=== PATIENT | male | born 1960 | race Caucasian/White ===

== ENCOUNTER → 2016-08-14 | Outpatient (CLI) | payer MEDICARE ==
[~2016-08-14] MED LIST: /TAMS4CA; ADDE10CA3 OR; AMLO10TA2 PO; ARTHROTEC PO; ASPI1TAB6 PO; ASPI81TA2 PO; CLOP75TA2 PO; COLA50CA OR; DICL75TA PO; FLUO10TA2 OR; GABA600T3 OR; GINGKO BILOBA PO; GINSENG PO; I-CAP PO; LIDO5DIS41 TOP; LODINE; LODINE OR; LODINE PO; METH10TA2 OR; METH750T OR; METO-346 PO; MORP100T OR; MORP60TA OR; MSIR30TA PO; MULTIVIT PO; NAPR500T2 PO; OXYC15TA50; OXYC15TA50 OR; OXYC1CON3 PO; OXYC40TA29 PO; PENN1.5S2 TOP; PENNSAID TOP; PRAV80TA2 PO; PREG25CA PO; PRIL20CA OR; PROZ20CA; PROZ40CA PO; SIMV20TA2 OR; SOMA350T OR; SOMA350T PO; TIZA4CAP3 PO; TRAZ50TA; TRAZ50TA OR
--- NOTE | 2016-09-03 00:55 | ECWPNPC ---
PATIENT NAME: TAMMY FRAZIER JR : 1960 GENDER: MALE VISIT DATE: 08/14/2016 DISCHARGE DATE: 08/14/16 1049 VISIT LOCKED DATE TIME: PHYSICIAN: BRETT AGUILAR RESOURCE: BRETT AGUILAR REASON FOR APPOINTMENT 1. BACK HISTORY OF PRESENT ILLNESS HISTORY OF PRESENT ILLNESS: PAIN THE PATIENT DESCRIBES THE PAIN... FALL RISK SCREENING: SCREENING :NO FALLS IN THE PAST YEAR TODAY'S VISIT: NOTES: RATES PAIN LEVEL TODAY 410. DESCRIBES PAINA S SHARP AND ACHING. NOTES PAIN IS CENTERED IN NECK, LEFT SHOULDER BOTH HIPS AND LEFT LEG. HAS RETURNED FROM [place] JUST IN THE LAST 2 WEEKS. REPORTS HE FEELS MUCH BETTER THERE AND IS TRING TO GET HIS AFFAIRS IN ORDER TO RETURN ON A PERMANENT BASIS. DENIES ANY RECENT FALLS.. CURRENT MEDICATIONS TAKING AMPHETAMINE-DEXTROAMPHETAMINE 10 MG TABLET ORAL BID TAKING OMEPRAZOLE 20 MG CAPSULE DELAYED RELEASE ORAL ONCE DAILY TAKING TRAZODONE HCL 50 MG TABLET ORAL NIGHTLY NEEDED TAKING AMLODIPINE BESYLATE 10 MG TABLET ORAL TWICE DAILY TAKING PRAVASTATIN SODIUM 80 MG TABLET ORAL ONCE DAILY TAKING METOPROLOL TARTRATE 25 MG TABLET ORAL TWICE A DAY TAKING MORPHINE SULFATE ER 60 MG TABLET EXTENDED RELEASE 1 TABLET ORALLY Q 8 HRS MDD=3 TAKING ETODOLAC 400 MG TABLET 1 TABLET ORALLY TWICE A DAY TAKING GABAPENTIN 600 MG TABLET 1 CAP ORAL BID TAKING TIZANIDINE HCL 4 MG TABLET 1 TABLET NEEDED ORALLY EVERY 8 HRS TAKING MORPHINE SULFATE ER 60 MG TABLET EXTENDED RELEASE 1 CAPSULE ORAL CODE D CHRONIC PAIN TAKE 1 TAB Q 8HRS MDD=3 TAKING SOMA 350 MG TABLET 1 TABLET NEEDED ORALLY 1 AT BEDTIME PRN MDD1 TAKING METHADONE HCL 10 MG TABLET 1 TAB ORAL CODE D CHRONIC PAIN TAKE 1 TAB EVERY 6 HOURS MDD=4 CHRONIC PAIN NOT-TAKING LYRICA 200 MG CAPSULE 1 CAP ORAL BID NOT-TAKING METHADONE HCL 10 MG TABLET 1 TABLET ORALLY Q 6 HRS MDD=4 NOT-TAKING SOMA 350 MG TABLET 1 TABLET NEEDED ORALLY BEFORE BEDTIME MEDICATION LIST REVIEWED AND RECONCILED WITH THE PATIENT PAST MEDICAL HISTORY GERD ANXIETY POST LAMI PAIN SYNDROME DEPRESSION HEART ATTACK X 2 AND STENTS PLACED ALLERGIES NONE REVIEW OF SYSTEMS REVIEWED BY: PROVIDER: BRETT REYNOSOP . CONSTITUTIONAL: ANY CHANGE IN YOUR MEDICAL CONDITION? YES, LEFT HIP POPS OUT . CHILLS NO . FEVER NO . INFECTION: DO YOU HAVE NEW INFECTIONS? NO . DO YOU HAVE HISTORY OF MRSA? NO . MUSCULOSKELETAL: ANY NEW PATTERNS OF PAIN OR NUMBNESS? YES . GASTROENTEROLOGY: GENERAL ACID REFLUX IMPROVED WITH STOPPING NSAIDS . ANY NEW CHANGE IN BOWEL CONTROL? NO . GENITOURINARY: ANY NEW CHANGE IN BLADDER CONTROL? NO . IS THERE A CHANCE YOU COULD BE ? NO . HEMATOLOGY/LYMPH: DO YOU TAKE ANY BLOOD THINNERS? (FOR EXAMPLE- COUMADIN, PLAVIX, AGGRENOX, PLATEL, PRADAXA, OR XARELTO) NO . WHEN WAS YOUR LAST DOSE? DATE: TIME: . NEUROLOGY: HAVE YOU FALLEN IN THE PAST 6 MONTHS? NO . ANY NEW EXTREMITY NUMBNESS OR WEAKNESS? NO . CARDIOLOGY: DO YOU HAVE A PACEMAKER OR DEFIBRILLATOR? NO . CHANGE IN EXERCISE TOLERANCE REPORTS IS MORE EASIL Y FATIGUED . CHEST PAIN PATIENT DENIES. NO NEW CARDIAC ISSUES IN THE LAST 6 MONTHS . RESPIRATORY: HAVE YOU BEEN SICK IN THE PAST WEEK? NO . FEVER NO . FLU LIKE SYMPTOMS? NO . COUGH NO . INTEGUMENTARY: DO YOU HAVE ANY RASHES OR OPEN SORES? NO . ALLERGIC/IMMUNO: ARE YOU ALLERGIC TO SHELLFISH OR IV DYE? NO . ANY NEW ALLERGIES? NO . PSYCHIATRIC: DO YOU HAVE THOUGHTS OF HURTING YOURSELF OR SOMEONE ELSE? NO . ARE YOU ABUSED, NEGLECTED, OR IN AN UNSAFE ENVIRONMENT? NO . ENDOCRINOLOGY: ARE YOU DIABETIC? NO . OTHER: DO YOU NEED ANY PRESCRIPTIONS? YES . IF YES, PLEASE LIST: ____GABAPENTIN TID . ANY NEW PROBLEMS WITH YOUR MEDICATIONS? NO . WHEN DID YOU LAST EAT? ____ . WHEN DID YOU LAST DRINK? ____ . WHAT DID YOU LAST DRINK? ____ . NAME OF PERSON DRIVING YOU HOME? ____ . DO YOU HAVE ANY OTHER QUESTIONS OR CONCERNS YES,INCREASE 3 TABS? . VITAL SIGNS WT 207 LBS, HT 69", BMI 30.57 INDEX, BP 144/82 MM HG, HR 71 /MIN, RR 18 /MIN, TEMP 98.0 F, OXYGEN SAT % 97%, NA INITIALS SC 09:50, REVIEWED BY: VD. EXAMINATION GENERAL EXAMINATION: PSYCHALERT , ORIENTED X 3 . LUNGS:CLEAR TO AUSCULTATION BILATERALLY. HEART:HEART RATE REGULAR. MUSCULOSKELETAL:TRIGGER POINTS:, ELICITED WITH PALPATION OVER LUMBAR PARAVERTEBRAL MUSCLES AND INTO THE SACRUM. WELL OVER THE BILATERAL TRAEZIUS. RESTRICTION OF ROM WITH CERVICAL ROTATION. TENDERNESS WITH PALPATION OVER BILATERAL ILIAC CREST AND TROCANTERIC REGION. MILD TENDERNESS OVER LUMOSACRAL AXIS. RISES EASILY TO STANDING POSITION. POSTURE UPRIGHT. GAIT RAPID, NONANTALGIC. ASSESSMENTS LUMBAR DISC DISPLACEMENT WITHOUT MYELOPATHY - M51.26 (PRIMARY) LUMBAR RADICULAR SYNDROME - M54.16 CERVICAL POST-LAMINECTOMY SYNDROME - M96.1 CHRONIC PRESCRIPTION OPIATE USE - Z79.891 TREATMENT LUMBAR DISC DISPLACEMENT WITHOUT MYELOPATHY REFILL GABAPENTIN TABLET, 600 MG, 1 CAP, ORAL, THREE TIMES DAILY, 90 DAY(S), 270, REFILLS 2 CLINICAL NOTES: ISTOP REGISTRY REVIEWED AND DEMNOSTRATES COMPLLIANCE. BRINGS IN MEDICATIONS WHICH IS APPROPRIATE FOR WHAT WAS DISPENSED. RECENT URINE TOXICOLOGY REVIEWED. NO UNAUTHORIZED MEDICATIONS. NO ILLICIT SUBSTANCES AND PRESCRIBED MEDICATIONS WERE PRESENT. DISCUSSION HELD TODAY REGARDING TRAFFIC STOP SECONDARY TO SPEEDING AND THEN "DRIVING UNDER THE INFLUENCE". PROCEDURE CODES FA211 ESTABILISHED PATIENT [facility] FACILITY CHARGE G8783 BP SCR PRFRM RCMDD DEFIND SCR INTVL G8419 BMI>=30OR<22 ALBINA NO FOLLOWUP G8730 PAIN ASSESS POS TOOL F/U PLAN DOC 3016F PT SCRND UNHLTHY [place] USE 1124F ACP DISCUSS-NO DSCNMKR DOCD 1036F TOBACCO NON-USER G8427 DOC MEDS VERIFIED W/[place] RE 3288F FALL RISK ASSESSMENT DOCD DISPOSITION & COMMUNICATION FOLLOW UP 1 MONTH (REASON: NECK/BACK PAIN) ELECTRONICALLY SIGNED BY PUSHPA RUFFIN ON 09/02/2016 AT 05:26 PM EDT DISCLAIMER : THIS IS A VISIT SUMMARY EXTRACTED FROM THE [employer] CHART. IT IS NOT A COPY OF THE [employer] PROGRESS NOTE. MTDD
== END ==
LOC: M PAIN 09:40
PROVIDERS: ATTEND Nurse Practitioner Family
DX: M51.26 Other intervertebral disc displacement, lumbar region (principal); M54.16 Radiculopathy, lumbar region; M96.1 Postlaminectomy syndrome, not elsewhere classified; Z79.891 Long term (current) use of opiate analgesic; Z79.899 Other long term (current) drug therapy; K21.9 Gastro-esophageal reflux disease without esophagitis; F41.9 Anxiety disorder, unspecified; F32.9 Major depressive disorder, single episode, unspecified; I25.2 Old myocardial infarction; Z95.5 Presence of coronary angioplasty implant and graft

== ENCOUNTER → 2016-09-11 | Outpatient (CLI) | payer MEDICARE ==
--- NOTE | 2016-10-10 02:03 | ECWPNPC ---
PATIENT NAME: TAMMY FRAZIER JR : 1960 GENDER: MALE VISIT DATE: 09/11/2016 DISCHARGE DATE: 09/11/16 1028 VISIT LOCKED DATE TIME: PHYSICIAN: BRETT AGUILAR RESOURCE: BRETT AGUILAR REASON FOR APPOINTMENT 1. NECK/BACK PAIN HISTORY OF PRESENT ILLNESS HISTORY OF PRESENT ILLNESS: PAIN THE PATIENT DESCRIBES THE PAIN... FALL RISK SCREENING: SCREENING :NO FALLS IN THE PAST YEAR TODAY'S VISIT: NOTES: NOTES PAIN IS CENTERD IN LEFT SHOULDER, BASE OF NECK AND LOW BACK. RATES PAIN TODAY 05/02. REPORTS NECK HAS BEEN LOCKING UP. . CURRENT MEDICATIONS TAKING AMPHETAMINE-DEXTROAMPHETAMINE 10 MG TABLET ORAL BID, NOTES: 09/11/16 AT 0700 TAKING OMEPRAZOLE 20 MG CAPSULE DELAYED RELEASE ORAL ONCE DAILY TAKING TRAZODONE HCL 50 MG TABLET ORAL NIGHTLY NEEDED TAKING AMLODIPINE BESYLATE 10 MG TABLET ORAL TWICE DAILY TAKING PRAVASTATIN SODIUM 80 MG TABLET ORAL ONCE DAILY TAKING METOPROLOL TARTRATE 25 MG TABLET ORAL TWICE A DAY TAKING TIZANIDINE HCL 4 MG TABLET 1 TABLET NEEDED ORALLY EVERY 8 HRS TAKING MORPHINE SULFATE ER 60 MG TABLET EXTENDED RELEASE 1 CAPSULE ORAL CODE D CHRONIC PAIN TAKE 1 TAB Q 8HRS MDD=3, NOTES: 09/11/16 AT 0730 TAKING SOMA 350 MG TABLET 1 TABLET NEEDED ORALLY 1 AT BEDTIME PRN MDD1, NOTES: 09/09/16 TAKING METHADONE HCL 10 MG TABLET 1 TAB ORAL CODE D CHRONIC PAIN TAKE 1 TAB EVERY 6 HOURS MDD=4 CHRONIC PAIN, NOTES: 09/11/16 AT 0730 TAKING GABAPENTIN 600 MG TABLET 1 CAP ORAL THREE TIMES DAILY, NOTES: 09/11/16 AT 0700 TAKING FLUOXETINE HCL 60 MG TABLET 1 TABLET IN THE MORNING ORALLY ONCE A DAY TAKING ASPIRIN ADULT LOW DOSE 81 MG TABLET DELAYED RELEASE 1 TABLET ORALLY ONCE A DAY NOT-TAKING MORPHINE SULFATE ER 60 MG TABLET EXTENDED RELEASE 1 TABLET ORALLY Q 8 HRS MDD=3 NOT-TAKING ETODOLAC 400 MG TABLET 1 TABLET ORALLY TWICE A DAY NOT-TAKING LYRICA 200 MG CAPSULE 1 CAP ORAL BID NOT-TAKING METHADONE HCL 10 MG TABLET 1 TABLET ORALLY Q 6 HRS MDD=4 NOT-TAKING SOMA 350 MG TABLET 1 TABLET NEEDED ORALLY BEFORE BEDTIME MEDICATION LIST REVIEWED AND RECONCILED WITH THE PATIENT PAST MEDICAL HISTORY GERD ANXIETY POST LAMI PAIN SYNDROME DEPRESSION HEART ATTACK X 2 AND STENTS PLACED ALLERGIES N.K.D.A. SOCIAL HISTORY GENERAL: TOBACCO USE ARE YOU A:NEVER SMOKER CAFFEINE CAFFEINE USE?YES HOW OFTEN AND HOW MUCH? 1 COFFEE A DAY LEARNING BARRIERS / SPECIAL NEEDS ABILITY TO UNDERSTAND VERBAL INSTRUCTIONS GOOD, ABILITY TO UNDERSTAND WRITTEN INSTRUCTIONS GOOD, KNOWLEDGE OF EDUCATIONAL NEEDS/TREATMENT PLAN GOOD, LEARNING PREFERENCE NO PREFERENCE. PAIN CLINIC PFS, CLERGY, PUBLIC HEALTH REFERRALS PFS REFERRAL NEEDED?NO CLERGY REFERRAL NEEDED?NO PUBLIC HEALTH REFERRAL NEEDED?NO HAS THE PATIENT BEEN EDUCATED REGARDING HIS/HER PLAN OF CARE?YES HAS THE PATIENT BEEN EDUCATED REGARDING PAIN, THE RISK FOR PAIN, THE IMPORTANCE OF EFFECTIVE PAIN MANAGEMENT, AND THE PAIN ASSESSMENT PROCESS?YES REVIEW OF SYSTEMS REVIEWED BY: PROVIDER: BRETT POWER . CONSTITUTIONAL: ANY CHANGE IN YOUR MEDICAL CONDITION? YES, INCREASED PAIN IN BOTH SHOULDERS SINCE MOVING BACK HERE FROM [place] . CHILLS NO . FEVER NO . INFECTION: DO YOU HAVE NEW INFECTIONS? NO . DO YOU HAVE HISTORY OF MRSA? NO . MUSCULOSKELETAL: ANY NEW PATTERNS OF PAIN OR NUMBNESS? NO . GASTROENTEROLOGY: ANY NEW CHANGE IN BOWEL CONTROL? NO . GENITOURINARY: ANY NEW CHANGE IN BLADDER CONTROL? NO . IS THERE A CHANCE YOU COULD BE ? NO . HEMATOLOGY/LYMPH: DO YOU TAKE ANY BLOOD THINNERS? (FOR EXAMPLE- COUMADIN, PLAVIX, AGGRENOX, PLATEL, PRADAXA, OR XARELTO) NO . WHEN WAS YOUR LAST DOSE? DATE: TIME: . NEUROLOGY: HAVE YOU FALLEN IN THE PAST 6 MONTHS? NO . ANY NEW EXTREMITY NUMBNESS OR WEAKNESS? NO . CARDIOLOGY: DO YOU HAVE A PACEMAKER OR DEFIBRILLATOR? NO . RESPIRATORY: HAVE YOU BEEN SICK IN THE PAST WEEK? NO . FEVER NO . FLU LIKE SYMPTOMS? NO . COUGH NO . INTEGUMENTARY: DO YOU HAVE ANY RASHES OR OPEN SORES? NO . ALLERGIC/IMMUNO: ARE YOU ALLERGIC TO SHELLFISH OR IV DYE? NO . ANY NEW ALLERGIES? NO . PSYCHIATRIC: DO YOU HAVE THOUGHTS OF HURTING YOURSELF OR SOMEONE ELSE? NO . ARE YOU ABUSED, NEGLECTED, OR IN AN UNSAFE ENVIRONMENT? NO . ENDOCRINOLOGY: ARE YOU DIABETIC? NO . OTHER: DO YOU NEED ANY PRESCRIPTIONS? YES . IF YES, PLEASE LIST: ____ . ANY NEW PROBLEMS WITH YOUR MEDICATIONS? NO . WHEN DID YOU LAST EAT? ____ . WHEN DID YOU LAST DRINK? ____ . WHAT DID YOU LAST DRINK? ____ . NAME OF PERSON DRIVING YOU HOME? ____ . DO YOU HAVE ANY OTHER QUESTIONS OR CONCERNS YES, NECK LOCKS UP . VITAL SIGNS WT 201.8 LBS, HT 69", BMI 29.80 INDEX, BP 147/89 MM HG, HR 87 /MIN, RR 18 /MIN, TEMP 98.2 F, OXYGEN SAT % 93%, NA INITIALS SC 09:46, REVIEWED BY: CS. EXAMINATION GENERAL EXAMINATION: PSYCHALERT , ORIENTED X 3 . LUNGS:CLEAR TO AUSCULTATION BILATERALLY. HEART:HEART RATE REGULAR. MUSCULOSKELETAL:TRIGGER POINTS:, ELICITED WITH PALPATION OVER LUMBAR PARAVERTEBRAL MUSCLES AND INTO THE SACRUM. WELL OVER THE BILATERAL TRAEZIUS. RESTRICTION OF ROM WITH CERVICAL ROTATION. TENDERNESS WITH PALPATION OVER BILATERAL ILIAC CREST AND TROCANTERIC REGION. MILD TENDERNESS OVER LUMOSACRAL AXIS. RISES EASILY TO STANDING POSITION. POSTURE UPRIGHT. GAIT RAPID, NONANTALGIC. ASSESSMENTS LUMBAR DISC DISPLACEMENT WITHOUT MYELOPATHY - M51.26 (PRIMARY) LUMBAR RADICULAR SYNDROME - M54.16 CERVICAL POST-LAMINECTOMY SYNDROME - M96.1 CHRONIC PRESCRIPTION OPIATE USE - Z79.891 TREATMENT LUMBAR DISC DISPLACEMENT WITHOUT MYELOPATHY NOTES: UTOX TODAYCONTINUE CURRENT MEDSFOLLOW UP WITH DR LOPEZ ABOUT TESTOSTERONE. CLINICAL NOTES: ISTOP REGISTRY REVIEWED AND DEMNOSTRATES COMPLLIANCE. BRINGS IN MEDICATIONS WHICH IS APPROPRIATE FOR WHAT WAS DISPENSED. RECENT URINE TOXICOLOGY REVIEWED. NO UNAUTHORIZED MEDICATIONS. NO ILLICIT SUBSTANCES AND PRESCRIBED MEDICATIONS WERE PRESENT. DISCUSSED OPTION OF INTERVENTIONAL TREATMENT. PT WISHES TO EXPLORE LOW TESTOSTERONE FIRST. REPORTS HE HAD A RECENT E[phone]. PROCEDURE CODES G8730 PAIN ASSESS POS TOOL F/U PLAN DOC G8427 DOC MEDS VERIFIED W/PT OR RE DISPOSITION & COMMUNICATION FOLLOW UP 1 MONTH (REASON: CAPO TO DR FADI BYERS, - ) ELECTRONICALLY SIGNED BY PUSHPA RUFFIN ON 10/09/2016 AT 08:29 AM EDT DISCLAIMER : THIS IS A VISIT SUMMARY EXTRACTED FROM THE [employer] CHART. IT IS NOT A COPY OF THE [employer] PROGRESS NOTE. MTDD
== END ==
LOC: M PAIN 10:00
PROVIDERS: ATTEND Nurse Practitioner Family
DX: M51.26 Other intervertebral disc displacement, lumbar region (principal); M54.16 Radiculopathy, lumbar region; M96.1 Postlaminectomy syndrome, not elsewhere classified; Z79.891 Long term (current) use of opiate analgesic; Z79.899 Other long term (current) drug therapy; Z79.82 Long term (current) use of aspirin

== ENCOUNTER → 2016-10-10 | Outpatient (CLI) | payer MEDICARE ==
--- NOTE | 2016-10-26 23:48 | ECWPNPC ---
PATIENT NAME: TAMMY FRAZIER JR : 1960 GENDER: MALE VISIT DATE: 10/10/2016 DISCHARGE DATE: 10/10/16 1159 VISIT LOCKED DATE TIME: PHYSICIAN: BRETT AGUILAR RESOURCE: BRETT AGUILAR HISTORY OF PRESENT ILLNESS HISTORY OF PRESENT ILLNESS: PAIN THE PATIENT DESCRIBES THE PAIN... FALL RISK SCREENING: SCREENING :NO FALLS IN THE PAST YEAR TODAY'S VISIT: NOTES: RATES PAIN 4/10. NOTES WORST ARE THE LOW BACK AND LEFT HAND. HAD FALL AND LANDED ON HAND HEARD IT POP AND HAND HAS BEEN SWOLLEN AND VERY PAINFUL WITH MOVEMENT. . CURRENT MEDICATIONS TAKING AMPHETAMINE-DEXTROAMPHETAMINE 10 MG TABLET ORAL BID TAKING OMEPRAZOLE 20 MG CAPSULE DELAYED RELEASE ORAL ONCE DAILY TAKING TRAZODONE HCL 50 MG TABLET ORAL NIGHTLY NEEDED TAKING AMLODIPINE BESYLATE 10 MG TABLET ORAL TWICE DAILY TAKING PRAVASTATIN SODIUM 80 MG TABLET ORAL ONCE DAILY TAKING METOPROLOL TARTRATE 25 MG TABLET ORAL TWICE A DAY TAKING TIZANIDINE HCL 4 MG TABLET 1 TABLET NEEDED ORALLY EVERY 8 HRS TAKING MORPHINE SULFATE ER 60 MG TABLET EXTENDED RELEASE 1 CAPSULE ORAL CODE D CHRONIC PAIN TAKE 1 TAB Q 8HRS MDD=3 TAKING SOMA 350 MG TABLET 1 TABLET NEEDED ORALLY 1 AT BEDTIME PRN MDD1 TAKING METHADONE HCL 10 MG TABLET 1 TAB ORAL CODE D CHRONIC PAIN TAKE 1 TAB EVERY 6 HOURS MDD=4 CHRONIC PAIN TAKING GABAPENTIN 600 MG TABLET 1 CAP ORAL THREE TIMES DAILY TAKING FLUOXETINE HCL 60 MG TABLET 1 TABLET IN THE MORNING ORALLY ONCE A DAY TAKING ASPIRIN ADULT LOW DOSE 81 MG TABLET DELAYED RELEASE 1 TABLET ORALLY ONCE A DAY NOT-TAKING MORPHINE SULFATE ER 60 MG TABLET EXTENDED RELEASE 1 TABLET ORALLY Q 8 HRS MDD=3 NOT-TAKING ETODOLAC 400 MG TABLET 1 TABLET ORALLY TWICE A DAY NOT-TAKING LYRICA 200 MG CAPSULE 1 CAP ORAL BID NOT-TAKING METHADONE HCL 10 MG TABLET 1 TABLET ORALLY Q 6 HRS MDD=4 NOT-TAKING SOMA 350 MG TABLET 1 TABLET NEEDED ORALLY BEFORE BEDTIME MEDICATION LIST REVIEWED AND RECONCILED WITH THE PATIENT PAST MEDICAL HISTORY GERD ANXIETY POST LAMI PAIN SYNDROME DEPRESSION HEART ATTACK X 2 AND STENTS PLACED ALLERGIES N.K.D.A. REVIEW OF SYSTEMS REVIEWED BY: PROVIDER: BRETT POWER . CONSTITUTIONAL: ANY CHANGE IN YOUR MEDICAL CONDITION? NO . CHILLS NO . FEVER NO . INFECTION: DO YOU HAVE NEW INFECTIONS? NO . DO YOU HAVE HISTORY OF MRSA? NO . MUSCULOSKELETAL: ANY NEW PATTERNS OF PAIN OR NUMBNESS? NO . GASTROENTEROLOGY: ANY NEW CHANGE IN BOWEL CONTROL? NO . GENITOURINARY: ANY NEW CHANGE IN BLADDER CONTROL? NO . IS THERE A CHANCE YOU COULD BE ? NO . HEMATOLOGY/LYMPH: DO YOU TAKE ANY BLOOD THINNERS? (FOR EXAMPLE- COUMADIN, PLAVIX, AGGRENOX, PLATEL, PRADAXA, OR XARELTO) NO . WHEN WAS YOUR LAST DOSE? DATE: TIME: . NEUROLOGY: HAVE YOU FALLEN IN THE PAST 6 MONTHS? YES . ANY NEW EXTREMITY NUMBNESS OR WEAKNESS? NO . CARDIOLOGY: DO YOU HAVE A PACEMAKER OR DEFIBRILLATOR? NO . RESPIRATORY: HAVE YOU BEEN SICK IN THE PAST WEEK? NO . FEVER NO . FLU LIKE SYMPTOMS? NO . COUGH NO . INTEGUMENTARY: DO YOU HAVE ANY RASHES OR OPEN SORES? NO . ALLERGIC/IMMUNO: ARE YOU ALLERGIC TO SHELLFISH OR IV DYE? NO . ANY NEW ALLERGIES? NO . PSYCHIATRIC: DO YOU HAVE THOUGHTS OF HURTING YOURSELF OR SOMEONE ELSE? NO . ARE YOU ABUSED, NEGLECTED, OR IN AN UNSAFE ENVIRONMENT? NO . ENDOCRINOLOGY: ARE YOU DIABETIC? NO . OTHER: DO YOU NEED ANY PRESCRIPTIONS? NO . IF YES, PLEASE LIST: ____ . ANY NEW PROBLEMS WITH YOUR MEDICATIONS? NO . WHEN DID YOU LAST EAT? ____ . WHEN DID YOU LAST DRINK? ____ . WHAT DID YOU LAST DRINK? ____ . NAME OF PERSON DRIVING YOU HOME? ____ . DO YOU HAVE ANY OTHER QUESTIONS OR CONCERNS NO . VITAL SIGNS WT 203 LBS, HT 69", BMI 29.97 INDEX, BP 137/81 MM HG, HR 81 /MIN, RR 18 /MIN, TEMP 98 F, OXYGEN SAT % 93%, NA INITIALS AW 1059, REVIEWED BY: CM. EXAMINATION GENERAL EXAMINATION: PSYCHALERT , ORIENTED X 3 . LUNGS:CLEAR TO AUSCULTATION BILATERALLY. HEART:HEART RATE REGULAR. MUSCULOSKELETAL:TRIGGER POINTS:, ELICITED WITH PALPATION OVER LUMBAR PARAVERTEBRAL MUSCLES AND INTO THE SACRUM. WELL OVER THE BILATERAL TRAEZIUS. RESTRICTION OF ROM WITH CERVICAL ROTATION. TENDERNESS WITH PALPATION OVER BILATERAL ILIAC CREST AND TROCANTERIC REGION. MILD TENDERNESS OVER LUMOSACRAL AXIS. RISES EASILY TO STANDING POSITION. POSTURE UPRIGHT. GAIT RAPID, NONANTALGIC. ASSESSMENTS LUMBAR DISC DISPLACEMENT WITHOUT MYELOPATHY - M51.26 (PRIMARY) LUMBAR RADICULAR SYNDROME - M54.16 CERVICAL POST-LAMINECTOMY SYNDROME - M96.1 CHRONIC PRESCRIPTION OPIATE USE - Z79.891 TREATMENT LUMBAR DISC DISPLACEMENT WITHOUT MYELOPATHY START DICLOFENAC SODIUM CREAM, 1 %, DIRECTED, TRANSDERMAL, APPLY 4 GRAMS TO PAINFUL AREA OF LOW BACK Q 6 HRS, 30 DAY(S), 3 TUBE, REFILLS 2 CLINICAL NOTES: ISTOP REGISTRY REVIEWED AND DEMNOSTRATES COMPLLIANCE. BRINGS IN MEDICATIONS WHICH IS APPROPRIATE FOR WHAT WAS DISPENSED. RECENT URINE TOXICOLOGY REVIEWED. NO UNAUTHORIZED MEDICATIONS. NO ILLICIT SUBSTANCES AND PRESCRIBED MEDICATIONS WERE PRESENT. PROCEDURE CODES FA211 ESTABILISHED PATIENT [facility] FACILITY CHARGE G8730 PAIN ASSESS POS TOOL F/U PLAN DOC G8427 DOC MEDS VERIFIED W/PT OR RE DISPOSITION & COMMUNICATION FOLLOW UP 1 MONTH (REASON: BACK PAIN) ELECTRONICALLY SIGNED BY PUSHPA RUFFIN ON 10/26/2016 AT 01:56 PM EDT DISCLAIMER : THIS IS A VISIT SUMMARY EXTRACTED FROM THE [employer] CHART. IT IS NOT A COPY OF THE [employer] PROGRESS NOTE. MTDD
== END ==
LOC: M PAIN 11:00
PROVIDERS: ATTEND Nurse Practitioner Family
DX: M51.26 Other intervertebral disc displacement, lumbar region (principal); M54.16 Radiculopathy, lumbar region; M96.1 Postlaminectomy syndrome, not elsewhere classified; F41.9 Anxiety disorder, unspecified; F32.9 Major depressive disorder, single episode, unspecified; K21.9 Gastro-esophageal reflux disease without esophagitis; Z79.891 Long term (current) use of opiate analgesic; Z79.899 Other long term (current) drug therapy; Z79.82 Long term (current) use of aspirin; I51.9 Heart disease, unspecified; Z95.5 Presence of coronary angioplasty implant and graft

== ENCOUNTER → 2016-11-07 | Outpatient (CLI) | payer MEDICARE ==
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
== END ==
LOC: M PAIN 11:00
PROVIDERS: ATTEND Nurse Practitioner Family
DX: M51.26 Other intervertebral disc displacement, lumbar region (principal); M54.16 Radiculopathy, lumbar region; M96.1 Postlaminectomy syndrome, not elsewhere classified; Z79.891 Long term (current) use of opiate analgesic; Z79.899 Other long term (current) drug therapy; Z79.82 Long term (current) use of aspirin; Z86.74 Personal history of sudden cardiac arrest; Z95.5 Presence of coronary angioplasty implant and graft

== ENCOUNTER → 2016-12-05 | Outpatient (CLI) | payer MEDICARE ==
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
== END ==
LOC: M PAIN 11:00
PROVIDERS: ATTEND Nurse Practitioner Family
DX: M51.26 Other intervertebral disc displacement, lumbar region (principal); M54.16 Radiculopathy, lumbar region; M96.1 Postlaminectomy syndrome, not elsewhere classified; Z79.891 Long term (current) use of opiate analgesic; Z79.82 Long term (current) use of aspirin; Z79.899 Other long term (current) drug therapy; Z86.74 Personal history of sudden cardiac arrest; Z95.5 Presence of coronary angioplasty implant and graft

== ENCOUNTER → 2017-01-06 | Outpatient (CLI) | payer MEDICARE ==
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
== END | disposition home or self-care (01) ==
LOC: M PAIN 10:45
PROVIDERS: ATTEND Nurse Practitioner Family
DX: G89.29 Other chronic pain (principal); M51.26 Other intervertebral disc displacement, lumbar region; M54.16 Radiculopathy, lumbar region; M96.1 Postlaminectomy syndrome, not elsewhere classified; K21.9 Gastro-esophageal reflux disease without esophagitis; F41.9 Anxiety disorder, unspecified; F33.9 Major depressive disorder, recurrent, unspecified; Z86.73 Personal history of transient ischemic attack (TIA), and cerebral infarction without residual deficits; Z95.5 Presence of coronary angioplasty implant and graft; Z79.899 Other long term (current) drug therapy; Z79.82 Long term (current) use of aspirin

== ENCOUNTER → 2017-07-08 | Outpatient (CLI) | payer MEDICARE | LOC: M PAIN 11:45 | DX: M51.26 Other intervertebral disc displacement, lumbar region (principal); M54.16 Radiculopathy, lumbar region; M96.1 Postlaminectomy syndrome, not elsewhere classified; K21.9 Gastro-esophageal reflux disease without esophagitis; F41.9 Anxiety disorder, unspecified; F32.9 Major depressive disorder, single episode, unspecified; Z79.82 Long term (current) use of aspirin; Z79.891 Long term (current) use of opiate analgesic; Z79.899 Other long term (current) drug therapy; Z95.5 Presence of coronary angioplasty implant and graft; Z86.79 Personal history of other diseases of the circulatory system | CPT/HCPCS: G0463 ==

== ENCOUNTER → 2017-08-10 | Outpatient (CLI) | payer MEDICARE | LOC: M PAIN 13:15 | DX: M51.26 Other intervertebral disc displacement, lumbar region (principal); M54.16 Radiculopathy, lumbar region; M96.1 Postlaminectomy syndrome, not elsewhere classified; F41.9 Anxiety disorder, unspecified; F32.9 Major depressive disorder, single episode, unspecified; K21.9 Gastro-esophageal reflux disease without esophagitis; Z79.82 Long term (current) use of aspirin; Z79.891 Long term (current) use of opiate analgesic; Z79.899 Other long term (current) drug therapy | CPT/HCPCS: G0463 ==

== ENCOUNTER → 2017-09-10 | Outpatient (CLI) | payer MEDICARE | LOC: M PAIN 09:45 | DX: M51.26 Other intervertebral disc displacement, lumbar region (principal); M54.16 Radiculopathy, lumbar region; M96.1 Postlaminectomy syndrome, not elsewhere classified; K21.9 Gastro-esophageal reflux disease without esophagitis; F41.9 Anxiety disorder, unspecified; F32.9 Major depressive disorder, single episode, unspecified; Z79.82 Long term (current) use of aspirin; Z79.891 Long term (current) use of opiate analgesic; Z79.899 Other long term (current) drug therapy; Z86.79 Personal history of other diseases of the circulatory system | CPT/HCPCS: G0463 ==

== ENCOUNTER → 2017-10-22 | Outpatient (CLI) | payer MEDICARE | LOC: M PAIN 10:00 | DX: M51.26 Other intervertebral disc displacement, lumbar region (principal); M54.16 Radiculopathy, lumbar region; M96.1 Postlaminectomy syndrome, not elsewhere classified; K21.9 Gastro-esophageal reflux disease without esophagitis; F41.9 Anxiety disorder, unspecified; F32.9 Major depressive disorder, single episode, unspecified; I25.2 Old myocardial infarction; Z79.891 Long term (current) use of opiate analgesic; Z95.5 Presence of coronary angioplasty implant and graft; Z79.82 Long term (current) use of aspirin; Z79.899 Other long term (current) drug therapy | CPT/HCPCS: G0463 ==

== ENCOUNTER → 2017-12-03 | Outpatient (CLI) | payer MEDICARE | LOC: M PAIN 13:45 | DX: M51.26 Other intervertebral disc displacement, lumbar region (principal); M54.16 Radiculopathy, lumbar region; M96.1 Postlaminectomy syndrome, not elsewhere classified; K21.9 Gastro-esophageal reflux disease without esophagitis; F41.9 Anxiety disorder, unspecified; F32.9 Major depressive disorder, single episode, unspecified; I25.2 Old myocardial infarction; Z79.891 Long term (current) use of opiate analgesic; Z95.5 Presence of coronary angioplasty implant and graft; Z98.1 Arthrodesis status; Z79.82 Long term (current) use of aspirin; Z79.899 Other long term (current) drug therapy | CPT/HCPCS: G0463 ==

== ENCOUNTER → 2018-09-02 | Outpatient (CLI) | payer MEDICARE ==
[~2018-09-02] MED LIST changes: -/TAMS4CA; +FLOM0.4C39; +TIZA4CAP PO; -TIZA4CAP3 PO
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
== END ==
LOC: M PAIN 10:30
PROVIDERS: ATTEND Family Medicine
DX: M51.26 Other intervertebral disc displacement, lumbar region (principal); K21.9 Gastro-esophageal reflux disease without esophagitis; F41.9 Anxiety disorder, unspecified; M96.1 Postlaminectomy syndrome, not elsewhere classified; F32.9 Major depressive disorder, single episode, unspecified; I25.2 Old myocardial infarction; Z95.5 Presence of coronary angioplasty implant and graft; Z79.82 Long term (current) use of aspirin; Z79.891 Long term (current) use of opiate analgesic; Z98.1 Arthrodesis status

== ENCOUNTER → 2018-11-10 | Outpatient (CLI) | payer MEDICARE ==
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
== END ==
LOC: M PAIN 13:15
PROVIDERS: ATTEND Family Medicine
DX: M51.26 Other intervertebral disc displacement, lumbar region (principal); G89.29 Other chronic pain; K21.9 Gastro-esophageal reflux disease without esophagitis; Z86.59 Personal history of other mental and behavioral disorders; I25.2 Old myocardial infarction; Z79.82 Long term (current) use of aspirin; Z79.891 Long term (current) use of opiate analgesic; Z79.899 Other long term (current) drug therapy

== ENCOUNTER → 2018-12-03 | Outpatient (CLI) | payer MEDICARE | LOC: M PAIN 10:45 | PROVIDERS: ATTEND Family Medicine | DX: M54.16 Radiculopathy, lumbar region (principal); K21.9 Gastro-esophageal reflux disease without esophagitis; F41.9 Anxiety disorder, unspecified; M96.1 Postlaminectomy syndrome, not elsewhere classified; F32.9 Major depressive disorder, single episode, unspecified; I25.2 Old myocardial infarction; Z95.5 Presence of coronary angioplasty implant and graft; Z79.82 Long term (current) use of aspirin; Z79.899 Other long term (current) drug therapy ==

== ENCOUNTER → 2019-06-28 | Outpatient (CLI) | payer MEDICARE ==
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
== END ==
LOC: M PAIN 11:30
PROVIDERS: ATTEND Family Medicine
DX: M51.26 Other intervertebral disc displacement, lumbar region (principal); G89.29 Other chronic pain; K21.9 Gastro-esophageal reflux disease without esophagitis; Z86.59 Personal history of other mental and behavioral disorders; Z79.82 Long term (current) use of aspirin; Z79.891 Long term (current) use of opiate analgesic; Z79.899 Other long term (current) drug therapy

== ENCOUNTER → 2019-07-29 | Outpatient (CLI) | payer MEDICARE ==
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
== END ==
LOC: M PAIN 11:30 → M TMPAIN 11:30
PROVIDERS: ATTEND Family Medicine
DX: M54.16 Radiculopathy, lumbar region (principal); M51.26 Other intervertebral disc displacement, lumbar region

== ENCOUNTER → 2019-08-29 | Outpatient (CLI) | payer MEDICARE ==
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
== END ==
LOC: M TMPAIN 13:45 → M PAIN 13:45
PROVIDERS: ATTEND Family Medicine
DX: M51.26 Other intervertebral disc displacement, lumbar region (principal)

== ENCOUNTER → 2019-11-29 | Outpatient (CLI) | payer MEDICARE ==
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
== END ==
LOC: M PAIN 11:30
PROVIDERS: ATTEND Family Medicine
DX: M46.1 Sacroiliitis, not elsewhere classified (principal); G89.29 Other chronic pain; K21.9 Gastro-esophageal reflux disease without esophagitis; Z86.59 Personal history of other mental and behavioral disorders; Z95.5 Presence of coronary angioplasty implant and graft; Z79.82 Long term (current) use of aspirin; Z79.891 Long term (current) use of opiate analgesic; Z79.899 Other long term (current) drug therapy

== ENCOUNTER → 2019-12-07 | Outpatient (CLI) | payer MEDICARE | LOC: M LABSMTC 14:29 | PROVIDERS: ATTEND Anesthesiology | DX: Z11.59 Encounter for screening for other viral diseases (principal) | CPT/HCPCS: C9803; U0003 ==

== ENCOUNTER → 2019-12-12 | Outpatient (CLI) | payer MEDICARE ==
[~2019-12-12] MED LIST changes: +BUPIVACAINE HCL 0.25% 30ML VIAL As Ordered ONE; +ISOVUE-M 300 61% 15ML VIAL As Ordered ONE; +LIDOCAINE 1% SDV 30ML VIAL As Ordered ONE; +TRIAMCINOLONE ACETONIDE SUSP 40 MG/ML VIAL (J3301) As Ordered ONE; +diazePAM 5 MG TAB As Ordered ONE; +oxyCODONE 5MG TAB As Ordered ONE
--- NOTE | 2019-12-12 11:14 | REP ---
INDICATION: RIGHT SACROILIAC JOINT INJECTION. PAIN COMPARISON: None. TECHNIQUE: MULTIPLE C-ARM VIEWS RIGHT SACROILIAC JOINT PERFORMED FINDINGS: A NEEDLE OVERLIES THE RIGHT SACROILIAC JOINT. IMPRESSION: 28 SECONDS OF FLUOROSCOPY TIME WAS UTILIZED. <Electronically signed by Ramu Alves > 12/12/19 [id number]
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
== END ==
LOC: M PAIN 09:00
PROVIDERS: ATTEND Anesthesiology
DX: M46.1 Sacroiliitis, not elsewhere classified (principal); M53.3 Sacrococcygeal disorders, not elsewhere classified; M96.1 Postlaminectomy syndrome, not elsewhere classified; K21.9 Gastro-esophageal reflux disease without esophagitis; F41.9 Anxiety disorder, unspecified; F32.9 Major depressive disorder, single episode, unspecified; I25.2 Old myocardial infarction; Z95.5 Presence of coronary angioplasty implant and graft; Z79.82 Long term (current) use of aspirin; Z79.891 Long term (current) use of opiate analgesic; Z79.899 Other long term (current) drug therapy
CPT/HCPCS: G0260; J3301; Q9967

== ENCOUNTER → 2020-01-02 | Outpatient (CLI) | payer MEDICARE ==
[~2020-01-02] MED LIST changes: -BUPIVACAINE HCL 0.25% 30ML VIAL As Ordered ONE; -ISOVUE-M 300 61% 15ML VIAL As Ordered ONE; -LIDOCAINE 1% SDV 30ML VIAL As Ordered ONE; -TRIAMCINOLONE ACETONIDE SUSP 40 MG/ML VIAL (J3301) As Ordered ONE; -diazePAM 5 MG TAB As Ordered ONE; -oxyCODONE 5MG TAB As Ordered ONE
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
== END ==
LOC: M PAIN 13:45
PROVIDERS: ATTEND Family Medicine
DX: G89.28 Other chronic postprocedural pain (principal); M46.1 Sacroiliitis, not elsewhere classified; K21.9 Gastro-esophageal reflux disease without esophagitis; F41.9 Anxiety disorder, unspecified; F32.9 Major depressive disorder, single episode, unspecified; I25.2 Old myocardial infarction; Z95.5 Presence of coronary angioplasty implant and graft; Z79.82 Long term (current) use of aspirin; Z79.891 Long term (current) use of opiate analgesic; Z79.899 Other long term (current) drug therapy

== ENCOUNTER → 2020-08-13 | Outpatient (CLI) | payer MEDICARE ==
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
== END ==
LOC: M PAIN 13:00
PROVIDERS: ATTEND Family Medicine
DX: M51.26 Other intervertebral disc displacement, lumbar region (principal); K21.9 Gastro-esophageal reflux disease without esophagitis; F41.9 Anxiety disorder, unspecified; M96.1 Postlaminectomy syndrome, not elsewhere classified; F32.9 Major depressive disorder, single episode, unspecified; I25.2 Old myocardial infarction; Z95.5 Presence of coronary angioplasty implant and graft; Z79.82 Long term (current) use of aspirin; Z79.891 Long term (current) use of opiate analgesic

== ENCOUNTER → 2020-10-12 | Outpatient (CLI) | payer MEDICARE ==
--- NOTE | 2020-10-14 23:37 | ECWPNPC ---
PATIENT NAME: TAMMY FRAZIER JR : 1960 GENDER: MALE VISIT DATE: 10/12/2020 DISCHARGE DATE: 10/12/20 1507 VISIT LOCKED DATE TIME: PHYSICIAN: MAE CHERRY MD RESOURCE: MAE CHERRY MD REASON FOR APPOINTMENT 1. BACK PAIN 2. NEEDS UPDATED UTOX AND EKG HISTORY OF PRESENT ILLNESS GENERAL: 60-YEAR-OLD MALE PATIENT WITH A HISTORY OF CHRONIC LOW BACK PAIN. THE PATIENT DESCRIBES THE PAIN ACHING, BURNING AND SHARP WITH A PAIN SCORE RANGING FROM 6-10/10. THE PAIN IS MAINLY IN THE BACK WITH RADIATION TO THE RIGHT BUTTOCK AND DOWN THE LEG. HE HAS BEEN SUFFERING FROM THIS FOR MANY YEARS. HE HAS A HISTORY OF A BACK SURGERY. HE IS HAVING A HARD TIME MOVING AROUND. HE IS CURRENTLY USING OPIOIDS TO CONTROL HIS PAIN. FALL RISK SCREENING: SCREENING : NO FALLS REPORTED IN THE LAST YEAR. PAIN SCREENING: PATIENT HAS A COMPLAINT OF ACUTE OR CHRONIC PAIN :YES LOCATION OF PAIN:LOW BACK RIGHT BUTTOCK, DOWN LEG AND INTO RIGHT FOOT INTENSITY OF PAIN (SCALE OF 1 TO 10):6 WHAT DOES YOUR PAIN FEEL LIKE:ACHING, BURNING, SHARP, SHOOTING DURATION:CONTINOUS, CONSTANT, STEADY, ALL DAY, INTERMITTENT PAIN IS INCREASED BY:ACTIVITIES PAIN IS DECREASED BY:USE OF PAIN MEDICATIONS, OTHERS LAYING DOWN NURSING NOTE: -. PAIN CENTER INTAKE QUESTIONS: DO YOU HAVE A HISTORY OF MRSA? :NO DO YOU TAKE A BLOOD THINNERS? :NO DO YOU HAVE ANY BLEEDING DISORDERS? :NO ANY NEW NUMBNESS OR WEAKNESS IN YOUR LEGS OR ARMS? :YES SHOOTING PAINS DOWN RIGHT LEG. ANY PACEMAKER,DEFIBRILLATOR, OR DORSAL COLUMN STIMULATOR? :NO DO YOU HAVE ANY RASHES OR OPEN SORES? :NO ARE YOU ALLERGIC TO IV DYE? :NO ARE YOU DIABETIC? :NO ANY NEW PROBLEMS WITH YOUR MEDICATIONS? :NO PATIENT REPORTS HE HAS BEEN ON THE MORPHINE AND METHADONE "FOR TOO LONG AND ITS NOT ACTIVE ANYMORE". HAVE YOU RECEIVED A VACCINE IN THE PAST 30 DAYS? :NO DO YOU PLAN TO RECEIVE A VACCINE IN THE NEXT 21 DAYS? :NO DO YOU NEED ANY PRESCRIPTION? :NO DO YOU TAKE ANY IMMUNOSUPPRESSIVE MEDICATIONS? :NO DO YOU HAVE ANY KIDNEY OR LIVER DISEASE? :NO IS THERE A CHANCE YOU COULD BE ? :NO ARE YOU BREAST FEEDING? :NO CURRENT MEDICATIONS TAKING OMEPRAZOLE 20 MG CAPSULE DELAYED RELEASE ORAL ONCE DAILY TAKING PRAVASTATIN SODIUM 80 MG TABLET ORAL ONCE DAILY TAKING METOPROLOL TARTRATE 25 MG TABLET HALF A TAB ORAL TWICE A DAY TAKING FLUOXETINE HCL 60 MG TABLET 1 TABLET IN THE MORNING ORALLY ONCE A DAY TAKING ASPIRIN ADULT LOW DOSE 81 MG TABLET DELAYED RELEASE 1 TABLET ORALLY ONCE A DAY TAKING BACLOFEN 20 MG TABLET 1 TABLET WITH FOOD OR MILK ORALLY THREE TIMES A DAY TAKING DICLOFENAC SODIUM 1 % CREAM DIRECTED TRANSDERMAL APPLY 4 GRAMS TO PAINFUL AREA OF LOW BACK Q 6 HRS TAKING SOMA 350 MG TABLET 1 TABLET NEEDED ORALLY BEFORE BEDTIME MDD=1 TAKING ETODOLAC 400 MG TABLET 1 TABLET ORALLY TWICE A DAY TAKING LYRICA 200 MG CAPSULE 1 CAP ORAL BID CODE D CHRONIC PAIN 90 DAY SUPPLY TAKING MORPHINE SULFATE ER 60 MG TABLET EXTENDED RELEASE 1 CAPSULE ORAL Q8H MDD3 TAKING METHADONE HCL 10 MG TABLET 1 TAB ORAL EVERY 8 HRS MDD3 NOT-TAKING AMPHETAMINE-DEXTROAMPHETAMINE 10 MG TABLET ORAL BID NOT-TAKING TRAZODONE HCL 50 MG TABLET ORAL NIGHTLY NEEDED NOT-TAKING AMLODIPINE BESYLATE 10 MG TABLET HALF A TABLET ORAL TWICE DAILY NOT-TAKING METHADONE HCL 10 MG TABLET 1 TABLET ORALLY Q 6 HRS MDD=4 MEDICATION LIST REVIEWED AND RECONCILED WITH THE PATIENT PAST MEDICAL HISTORY GERD ANXIETY POST LAMI PAIN SYNDROME DEPRESSION HEART ATTACK X 2 AND STENTS PLACED HYPEREXTENDED RIGHT LEG ALLERGIES N.K.D.A. SOCIAL HISTORY GENERAL: TOBACCO USE ARE YOU A: NEVER SMOKER. LATEX QUESTIONNAIRE LATEX ALLERGY : HAVE YOU EVER DEVELOPED ANY TYPE OF REACTION AFTER HANDLING LATEX PRODUCTS SUCH RUBBER GLOVES, CONDOMS, DIAPHRAGMS, BALLOONS, SOCKS, OR UNDERWEAR?NO LATEX ALLERGY : HAVE YOU EVER DEVELOPED ANY TYPE OF REACTION DURING OR AFTER DENTAL APPOINTMENT, VAGINAL/RECTAL EXAMINATION, SURGICAL PROCEDURE, OR ANY OTHER EXPOSURE?NO LATEX RISK : HAVE YOU EVER HAD ANY DIFFICULTY BREATHING OR HIVES AFTER EATING OR HANDLING ANY FRUITS, OR VEGETABLES; SUCH KIWI, BANANAS, STONE FRUITS, OR CHESTNUTSNO LATEX RISK : DO YOU HAVE A PREVIOUS PERSONAL HISTORY OF MORE THAN NINE SURGERIES, SPINA BIFIDA, OR REPEATED CATHERIZATIONS? NO LATEX RISK : ARE YOU FREQUENTLY EXPOSED TO LATEX PRODUCTS IN YOUR OCCUPATION?NO DATE ASKED : 08/13/2020 ALCOHOL USE: NO. ALCOHOL SCREENING DID YOU HAVE A DRINK CONTAINING ALCOHOL IN THE PAST YEAR?YES HOW OFTEN DID YOU HAVE A DRINK CONTAINING ALCOHOL IN THE PAST YEAR?MONTHLY OR LESS (1 POINT) HOW MANY DRINKS DID YOU HAVE ON A TYPICAL DAY WHEN YOU WERE DRINKING IN THE PAST YEAR?1 OR 2 (0 POINTS) HOW OFTEN DID YOU HAVE SIX OR MORE DRINKS ON ONE OCCASION IN THE PAST YEAR?NEVER (0 POINTS) POINTS1 INTERPRETATIONNEGATIVE RECREATIONAL DRUG USE DRUG USE?NO CAFFEINE CAFFEINE USE?YES HOW OFTEN AND HOW MUCH? 1 COFFEE A DAY SABIANIST [id number] NONE LANGUAGE LANGUAGES SPOKEN:MAORI EDUCATION LEVEL OF EDUCATION:NOT FINISHED COLLEGE LEARNING BARRIERS / SPECIAL NEEDS CHANGE FROM LAST VISIT?NO BARRIERS TO LEARNING?NO READINESS TO LEARN?YES LEARNING PREFERENCES?NO LEARNING CAPABILITIES PRESENT?YES EMOTIONAL BARRIERS?NO METAL SPRAY OPERATOR NEEDED?NO DOMESTIC VIOLENCE DO YOU FEEL SAFE IN YOUR ENVIRONMENT?YES OCCUPATION: DISABLED. DIET: REGULAR. EXERCISE: DAILY, NO REGULAR EXERCISE. MARITAL STATUS: . OTHERS AT HOME: NONE. - PFS REFERRAL NEEDED?NO CLERGY REFERRAL NEEDED?NO PUBLIC HEALTH REFERRAL NEEDED?NO WAS THE PROVIDER NOTIFIED OF ANY PERTINENT INFO?YES HAS THE PATIENT BEEN EDUCATED REGARDING HIS/HER PLAN OF CARE?YES HAS THE PATIENT BEEN EDUCATED REGARDING PAIN, THE RISK FOR PAIN, THE IMPORTANCE OF EFFECTIVE PAIN MANAGEMENT, AND THE PAIN ASSESSMENT PROCESS?YES ADVANCE DIRECTIVE ADVANCE DIRECTIVE DISCUSSED WITH PATIENT:YES HCP HAZEL BRENNER (FRIEND) [phone] REVIEW OF SYSTEMS CONSTITUTIONAL: ANY RECENT FEVER NO . CHILLS NO . WEIGHT CHANGE OF UNKNOWN REASONS NO . GASTROENTEROLOGY: NEW UNEXPLAINABLE CHANGES IN BOWEL CONTROL NO . CONSTIPATION NO . GENITOURINARY: ANY NEW CHANGE IN BLADDER CONTROL? NO . NEUROLOGY: NEW ONSET DIZZINESS OR NEUROLOGICAL CHANGES NOT MENTIONED NO . NEW NUMBNESS OR PAIN PATTERNS NOT MENTIONED AND PERTINENT TO TODAY'S VISIT NO . CARDIOLOGY: NEW CHEST PRESSURE NO . PATIENT DENIES NO . RESPIRATORY: UNEXPLAINABLE COUGH NO . NEW SHORTNESS OF BREATH NO . VITAL SIGNS WT 196.6 LBS, WT-KG 89.18 KG, HT 69", BMI 29.03 INDEX, BP 151/72 MM HG, HR 80 /MIN, RR 18 /MIN, TEMP 99.6 F, OXYGEN SAT % 94%, SAFE IN ENV? (Y/N) YES, NA INITIALS AW 1328, REVIEWED BY: APA. VIJI RN. EXAMINATION GENERAL EXAMINATION: THE PATIENT IS ALERT, ORIENTED TIMES THREE AND COOPERATIVE. THERE IS TENDERNESS IN THE LOWER BACK WITH THE PRESENCE OF TRIGGER POINTS WITH BANDS OF TISSUE AND RESTRICTION OF MOVEMENT. HE WALKS WITH AN ANTALGIC GAIT LIMPING FROM THE RIGHT LEG. HE HAS A SURGICAL SCAR. CT DATED 12/01/2014 SHOWS BULGING DISC AT MULTIPLE LEVELS, CENTRAL STENOSIS AT L4-L5, LAMINTECOTMY AT L5-S1. 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 CLINICAL NOTES: I DISCUSSED ALTERNATIVES WITH MR. FRAZIER. I AM GOING TO REQUEST SOME TRIGGER POINT INJECTIONS BILATERAL LOW BACK, BOOK AFTER APPROVED. ISTOP NUMBER [id number] WAS REVIEWED. I AM GOING TO REFER HIM TO THE [facility] FOR HIS KNEE PAIN TO CONSIDER OPTIONS. I CAN CONSIDER DOING INJECTIONS OVER HIS KNEE OR RADIOFREQUENCY. THE PATIENT EXPLAINED THAT HIS MEDICATIONS ARE NOT HELPING HIM THEY WERE BEFORE. I WANT TO ORDER AN EKG BECAUSE HE IS ON METHADONE. I WILL ALSO ORDER MRIS OF THE THORACIC AND LUMBAR SPINE TO SEE WHAT MAY BE GOING ON THERE. THE PATIENT REPORTS UNDERSTANDING AND AGREES WITH THE PLAN. I, PRABHA PAIGE, DOCUMENTED THE ABOVE INFORMATION ACTING A SCRIBE FOR DR. CHERRY. I HAVE REVIEWED THE ABOVE DOCUMENT, WRITTEN BY PRABHA PAIGE, DESIGNATED BROKER, AND I VERIFY THAT IT IS ACCURATE. KNEE PAIN [facility]:KNEE PAIN CHRONIC PRESCRIPTION OPIATE USE ELECTROCARDIOGRAM (EKG)[id number] BACK PAIN [facility] MRI SPINE,THORACIC WITHOUT [id number] SACROILIITIS [facility] CT PELVIS WITHOUT [id number],KRISTAL 10/12/2020 03:04:26 PM - PAYING SPECIAL ATTENTION TO THE SACROILIAC JOINTS VISIT CODES PROCEDURE CODES FA211 ESTABILISHED PATIENT [facility] CHARGE [id number] OFFICE/OUTPATIENT VISIT EST DISPOSITION & COMMUNICATION FOLLOW UP EKG ORDERED (REASON: REQUEST AUTH FOR TRIGGER POINT INJECTIONS BILATERAL LOW BACK. REQUEST AUTH FOR MRIS LUMBAR AND THORACIC AND CT PELVIS) ELECTRONICALLY SIGNED BY MAE CHERRY MD, MD ON 10/14/2020 AT 08:37 PM EDT DISCLAIMER : THIS IS A VISIT SUMMARY EXTRACTED FROM THE [employer] [employer] CHART. IT IS NOT A COPY OF THE [employer] PROGRESS NOTE. JANIYA
== END ==
LOC: M PAIN 13:30
PROVIDERS: ATTEND Anesthesiology
DX: M96.1 Postlaminectomy syndrome, not elsewhere classified (principal); M79.10 Myalgia, unspecified site; M79.18 Myalgia, other site; M51.16 Intervertebral disc disorders with radiculopathy, lumbar region; M25.569 Pain in unspecified knee; M54.9 Dorsalgia, unspecified; M46.1 Sacroiliitis, not elsewhere classified; K21.9 Gastro-esophageal reflux disease without esophagitis; F41.9 Anxiety disorder, unspecified; F32.9 Major depressive disorder, single episode, unspecified; I25.2 Old myocardial infarction; Z95.5 Presence of coronary angioplasty implant and graft; Z79.891 Long term (current) use of opiate analgesic; Z79.82 Long term (current) use of aspirin; Z79.899 Other long term (current) drug therapy

== ENCOUNTER 2020-10-18 22:38 | Emergency (ER) | payer MEDICARE ==
[~2020-10-18] VITALS: Ht 175.3 cm; Wt 85.9 kg
[2020-10-18] MEDS ORDERED: NS 1,000 ML IV ONE (22:55)
[2020-10-18 23:03] LABS: BASO # 0.1 10^3/uL (0.0-0.2); BASO % 0.8 % (0.0-1.0); EOS # 0.5 10^3/uL (0.0-0.5); EOS % 5.8 % (0.0-3.0); HEMATOCRIT 42.2 % (42.0-52.0); HEMOGLOBIN 12.9 g/dl (13.5-17.5); LYMPH # 2.1 10^3/uL (1.5-5.0); LYMPH % 22.7 % (24.0-44.0); MEAN CORPUSCULAR HEMOGLOBIN 26.7 pg (27.0-33.0); MEAN CORPUSCULAR HGB CONC 30.6 g/dl (32.0-36.5); MEAN CORPUSCULAR VOLUME 87.4 fl (80.0-96.0); MONO % 10.4 % (2.0-8.0); NEUTROPHILS # 5.6 10^3/uL (1.5-8.5); NEUTROPHILS % 59.9 % (36.0-66.0); PLATELET COUNT, AUTOMATED 236 10^3/uL (150-450); RED BLOOD COUNT 4.83 10^6/uL (4.30-6.10); WHITE BLOOD COUNT 9.3 10^3/uL (4.0-10.0)
--- NOTE | 2020-10-18 23:34 | REPVR ---
PROCEDURE INFORMATION: Exam: CT Chest Without Contrast; Diagnostic Exam date and time: 10/18/2020 11:00 PM Age: 60 years old Clinical indication: Other: Right rib pain TECHNIQUE: Imaging protocol: Diagnostic computed tomography of the chest without contrast. 3D rendering (Not supervised by radiologist): MIP and/or 3D reconstructed images were created by the technologist. Radiation optimization: All CT scans at this facility use at least one of these dose optimization techniques: automated exposure control; mA and/or kV adjustment per patient size (includes targeted exams where dose is matched to clinical indication); or iterative reconstruction. COMPARISON: CR PORTABLE CHEST X-RAY 10/18/2020 10:55 PM FINDINGS: Lungs: There is a 3 cm area of stranding density left mid lung field anterior in location. Considerations would include scarring and early infiltrate. To exclude any possibility of a nodule recommend follow-up CT scan in 6 months for re-evaluation and to document stability. There is a 5 mm nodular density upper aspect of the left lung posterior in location and this should also be reassessed in 6 months. Pleural spaces: There is no evidence of pneumothorax. There is also no evidence of pleural effusion. Heart: Unremarkable. No cardiomegaly. No pericardial effusion. Aorta: There is calcification along the aorta consistent with atherosclerotic changes. Lymph nodes: Unremarkable. No enlarged lymph nodes. Bones/joints: There is a 2 cm fragment of bone anterior to the left glenoid consistent with an area of old fracture there is prominent osteophyte formation humeral head and also at the left glenoid. There is no evidence of acute fracture. Soft tissues: Unremarkable. IMPRESSION: 1. 3 cm area of stranding density left upper lung anterior in location and most likely an area of scarring. Early infiltrate is also possibility. To exclude any possibility of developing nodule recommend follow-up CT scan in 6 months for re-evaluation and to document stability. 2. No evidence of fracture. Electronically signed by: Marlon Irwin On 10/18/2020 23:34:32 PM
--- NOTE | 2020-10-18 23:34 | REPVR ---
PROCEDURE INFORMATION: Exam: CT Head Without Contrast Exam date and time: 10/18/2020 10:57 PM Age: 60 years old Clinical indication: Other: Syncope TECHNIQUE: Imaging protocol: Computed tomography of the head without contrast. Radiation optimization: All CT scans at this facility use at least one of these dose optimization techniques: automated exposure control; mA and/or kV adjustment per patient size (includes targeted exams where dose is matched to clinical indication); or iterative reconstruction. COMPARISON: No relevant prior studies available. FINDINGS: Brain: No intracranial hemorrhage or extra-axial fluid collection. No evidence of mass effect or midline shift. Alves-white matter differentiation is intact. Cerebral ventricles: No ventriculomegaly. Paranasal sinuses: Visualized sinuses are unremarkable. No fluid levels. Mastoid air cells: Unremarkable. Bones/joints: No acute osseus lesion or fracture. Soft tissues: Unremarkable. IMPRESSION: No acute intracranial pathology. Electronically signed by: Vic Ronquillo On 10/18/2020 23:33:53 PM
--- NOTE | 2020-10-18 23:38 | REPVR ---
PROCEDURE INFORMATION: Exam: XR Chest Exam date and time: 10/18/2020 11:07 PM Age: 60 years old Clinical indication: Other: Syncope/near-syncope TECHNIQUE: Imaging protocol: XR of the chest. Views: 1 view. COMPARISON: No relevant prior studies available. FINDINGS: Lungs: On the recent CT there was a 3 cm area of stranding density left mid lung anterior in position. Considerations included scar, subtle early pneumonia, and early nodule. Given the appearances is most likely to be an area of scarring. Recommend follow-up CT examination in 6 months for re-evaluation and to document stability of this finding. Pleural spaces: There is no evidence of pneumothorax or pleural effusion. Heart/Mediastinum: The heart is normal in size. Bones/joints: Unremarkable. IMPRESSION: 3 cm area of stranding density left mid lung only seen on CT and recommend follow-up CT in 6 months. Electronically signed by: Marlon Irwin On 10/18/2020 23:38:01 PM
[2020-10-18 23:40] LABS: BLOOD UREA NITROGEN 13 MG/DL (7-18); CALCIUM LEVEL 8.9 MG/DL (8.8-10.2); CARBON DIOXIDE LEVEL 34 MEQ/L (21-32); CHLORIDE LEVEL 107 MEQ/L (98-107); CK-MB VALUE MASS 3.4 NG/ML (<3.6); CPK CREATINE PHOSPHOKINASE 183 U/L (39-308); CREATININE FOR GFR 1.11 MG/DL (0.70-1.30); ETHYL ALCOHOL (ETHANOL) < 0.003 % (0.000-0.010); GLOMERULAR FILTRATION RATE > 60.0 (>49); GLUCOSE, FASTING 96 MG/DL (70-100); MAGNESIUM LEVEL 2.5 MG/DL (1.8-2.4); MB/CK RELATIVE INDEX 1.86 (< OR =4); POTASSIUM SERUM 4.5 MEQ/L (3.5-5.1); SODIUM LEVEL 143 MEQ/L (136-145); TROPONIN I < 0.02 NG/ML (< 0.10)
--- NOTE | 2020-10-18 23:44 | REPVR ---
PROCEDURE INFORMATION: Exam: CT Cervical Spine Without Contrast Exam date and time: 10/18/2020 10:57 PM Age: 60 years old Clinical indication: Other: Syncope TECHNIQUE: Imaging protocol: Computed tomography images of the cervical spine without contrast. Radiation optimization: All CT scans at this facility use at least one of these dose optimization techniques: automated exposure control; mA and/or kV adjustment per patient size (includes targeted exams where dose is matched to clinical indication); or iterative reconstruction. COMPARISON: No relevant prior studies available. FINDINGS: Bones/joints: Chronic anterior fusion at C6-C7. Vertebral body heights are maintained. No locked or perched facets. Multilevel facet arthropathy. No acute cervical spine fracture. The dens is intact. Atlanto-axial intervals are normal. Discs/Spinal canal/Neural foramina: Multilevel degenerative changes with intervertebral disc height loss and osteophyte formation, with multilevel areas of mild canal stenosis. Lungs: Paraseptal emphysematous changes of the lung apices. Soft tissues: Unremarkable. IMPRESSION: No acute cervical spine fracture. Electronically signed by: Vic Ronquillo On 10/18/2020 23:44:09 PM
[2020-10-19 00:10] LABS: AMPHETAMINES LEVEL URINE POSITIVE (NEGATIVE); BARBITURATES URINE NEGATIVE (NEGATIVE); BENZODIAZEPINES URINE NEGATIVE (NEGATIVE); CANNABINOIDS URINE NEGATIVE (NEGATIVE); COCAINE METABOLITE URINE NEGATIVE (NEGATIVE); METHADONE URINE POSITIVE (NEGATIVE); OPIATES URINE POSITIVE (NEGATIVE); PHENCYCLIDINE URINE NEGATIVE (NEGATIVE)
[2020-10-19 03:45] VITALS: BP 138/88
[2020-10-19] MEDS ORDERED: KETO10TAB PO (04:02)
--- NOTE | 2020-10-19 21:19 | ECGEPIP ---
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
--- NOTE | 2020-10-24 11:20 | ED PDOC ---
Post-Departure Follow-Up certified letter sent regarding radiology reports Elisa Cody MD Oct 24, 2020 11:20
== END 2020-10-19 04:00 | disposition home or self-care (01) ==
LOC: M ED 22:38
DX: R55 Syncope and collapse (principal); T50.995A Adverse effect of other drugs, medicaments and biological substances, initial encounter; Y92.89 Other specified places as the place of occurrence of the external cause; I25.10 Atherosclerotic heart disease of native coronary artery without angina pectoris; I25.2 Old myocardial infarction; K21.9 Gastro-esophageal reflux disease without esophagitis; Z79.899 Other long term (current) drug therapy; Z79.82 Long term (current) use of aspirin

== ENCOUNTER → 2020-10-27 | Outpatient (CLI) | payer MEDICARE ==
[~2020-10-27] MED LIST changes: +KETO10TAB PO
--- NOTE | 2020-10-28 11:47 | REPVR ---
PROCEDURE INFORMATION: Exam: MR Lumbar Spine Without Contrast Exam date and time: 10/27/2020 2:54 PM Age: 60 years old Clinical indication: Low back pain; Surgery type: Fusion TECHNIQUE: Imaging protocol: Multiplanar magnetic resonance images of the lumbar spine without intravenous contrast. COMPARISON: CT Spine, lumbar w/o contrast 12/01/2014 1:24 PM FINDINGS: Spinal cord: Normal signal. No cord compression. L1-L2: There is mild retrolisthesis at this level. There is disc space narrowing and desiccation. There are moderate degenerative end plate changes at this level. There is a moderate disc/osteophyte complex that flattens the ventral thecal sac. There is a superimposed right foraminal disc herniation. There is moderate right-sided neuroforaminal narrowing. There is mild left-sided neuroforaminal narrowing. There is facet arthropathy and ligamentum flavum hypertrophy. There is mild spinal canal stenosis. L2-L3: There is mild retrolisthesis at this level. There is degenerative disc disease including disc space narrowing and dessication. There is a moderate disc/osteophyte complex that flattens the ventral thecal sac. There is moderate/severe bilateral neural foraminal narrowing, right worse than left. There is facet arthropathy and ligamentum flavum hypertrophy. There is mild spinal canal stenosis. L3-L4: There is mild retrolisthesis at this level. There is disc space narrowing and desiccation. There are moderate degenerative end plate changes at this level. There is a moderate disc/osteophyte complex that flattens the ventral thecal sac. There is moderate/severe bilateral neural foraminal narrowing. There is facet arthropathy and ligamentum flavum hypertrophy. There is moderate spinal canal stenosis. L4-L5: There is grade 1 anterior spondylolisthesis at this level. There is disc space narrowing and desiccation. There are moderate degenerative end plate changes at this level. There is a moderate disc/osteophyte complex that flattens the ventral thecal sac. There is moderate/severe bilateral neural foraminal narrowing. There is exuberant bilateral facet arthropathy and ligamentum flavum hypertrophy. There is moderate/severe spinal canal stenosis. L5-S1: There is effacement of the intervertebral disc at this level consistent with prior fusion. There has been a posterior decompression at this level. There is a moderate disc/osteophyte complex that flattens the ventral thecal sac. Soft tissues: Unremarkable. IMPRESSION: Moderate multilevel degenerative changes causing varying degrees of spinal canal and neuroforaminal narrowing. Spinal canal stenosis is most severe at L4/5. Severe multilevel neural foraminal narrowing. Postsurgical changes at L5/S1. Please correlate with surgical history. Please see details above. Electronically signed by: Jamey Griggs On 10/28/2020 11:46:47 AM
== END ==
LOC: M RAD 13:02
PROVIDERS: ATTEND Anesthesiology
DX: M96.1 Postlaminectomy syndrome, not elsewhere classified (principal); M48.061 Spinal stenosis, lumbar region without neurogenic claudication

== ENCOUNTER → 2020-11-08 | Outpatient (CLI) | payer MEDICARE | LOC: M LABSMTC 11:41 | PROVIDERS: ATTEND Anesthesiology | DX: Z11.52 Encounter for screening for COVID-19 (principal); Z20.822 Contact with and (suspected) exposure to COVID-19 ==

== ENCOUNTER → 2020-11-13 | Outpatient (CLI) | payer MEDICARE ==
[~2020-11-13] MED LIST changes: +BUPIVACAINE HCL 0.25% 10ML VIAL As Ordered ONE; +BUPIVACAINE HCL 0.25% 30ML VIAL As Ordered ONE; +TRIAMCINOLONE ACETONIDE SUSP 40 MG/ML VIAL (J3301) As Ordered ONE
== END ==
LOC: M PAIN 08:30
PROVIDERS: ATTEND Anesthesiology
DX: M79.18 Myalgia, other site (principal); K21.9 Gastro-esophageal reflux disease without esophagitis; Z86.59 Personal history of other mental and behavioral disorders; Z79.82 Long term (current) use of aspirin; Z79.891 Long term (current) use of opiate analgesic; Z79.899 Other long term (current) drug therapy
CPT/HCPCS: 20552; J3301

== ENCOUNTER → 2020-11-30 | Outpatient (CLI) | payer MEDICARE ==
[~2020-11-30] MED LIST changes: -BUPIVACAINE HCL 0.25% 10ML VIAL As Ordered ONE; -BUPIVACAINE HCL 0.25% 30ML VIAL As Ordered ONE; -TRIAMCINOLONE ACETONIDE SUSP 40 MG/ML VIAL (J3301) As Ordered ONE
== END ==
LOC: M PAIN 11:30
PROVIDERS: ATTEND Anesthesiology
DX: G89.28 Other chronic postprocedural pain (principal); M96.1 Postlaminectomy syndrome, not elsewhere classified; M51.16 Intervertebral disc disorders with radiculopathy, lumbar region; K21.9 Gastro-esophageal reflux disease without esophagitis; F41.9 Anxiety disorder, unspecified; F32.9 Major depressive disorder, single episode, unspecified; I25.2 Old myocardial infarction; Z79.82 Long term (current) use of aspirin; Z79.891 Long term (current) use of opiate analgesic; Z79.899 Other long term (current) drug therapy

== ENCOUNTER → 2021-03-18 | Outpatient (CLI) | payer MEDICARE | LOC: M PAIN 14:30 | PROVIDERS: ATTEND Anesthesiology | DX: M96.1 Postlaminectomy syndrome, not elsewhere classified (principal); K21.9 Gastro-esophageal reflux disease without esophagitis; F41.9 Anxiety disorder, unspecified; F32.A Depression, unspecified; I25.2 Old myocardial infarction; Z95.5 Presence of coronary angioplasty implant and graft; Z79.82 Long term (current) use of aspirin; Z79.891 Long term (current) use of opiate analgesic; Z79.899 Other long term (current) drug therapy ==

== ENCOUNTER → 2021-04-18 | Outpatient (CLI) | payer MEDICARE | LOC: M TMPAIN 15:30 → M PAIN 15:30 | PROVIDERS: ATTEND Anesthesiology | DX: M96.1 Postlaminectomy syndrome, not elsewhere classified (principal); K21.9 Gastro-esophageal reflux disease without esophagitis; F41.9 Anxiety disorder, unspecified; F32.A Depression, unspecified; I25.2 Old myocardial infarction; Z95.5 Presence of coronary angioplasty implant and graft; Z79.82 Long term (current) use of aspirin; Z79.891 Long term (current) use of opiate analgesic; Z79.899 Other long term (current) drug therapy ==

== ENCOUNTER → 2021-05-31 | Outpatient (CLI) | payer MEDICARE | LOC: M PAIN 15:00 | PROVIDERS: ATTEND Anesthesiology | DX: M96.1 Postlaminectomy syndrome, not elsewhere classified (principal); K21.9 Gastro-esophageal reflux disease without esophagitis; Z86.59 Personal history of other mental and behavioral disorders; Z79.82 Long term (current) use of aspirin; Z79.891 Long term (current) use of opiate analgesic; Z79.899 Other long term (current) drug therapy ==

== ENCOUNTER → 2021-07-31 | Outpatient (CLI) | payer MEDICARE | LOC: M PAIN 10:15 | PROVIDERS: ATTEND Anesthesiology | DX: M51.26 Other intervertebral disc displacement, lumbar region (principal); M48.061 Spinal stenosis, lumbar region without neurogenic claudication; M96.1 Postlaminectomy syndrome, not elsewhere classified; M54.2 Cervicalgia; M79.10 Myalgia, unspecified site; M53.3 Sacrococcygeal disorders, not elsewhere classified; M46.98 Unspecified inflammatory spondylopathy, sacral and sacrococcygeal region; K21.9 Gastro-esophageal reflux disease without esophagitis; F41.9 Anxiety disorder, unspecified; F32.A Depression, unspecified; I25.2 Old myocardial infarction; Z79.82 Long term (current) use of aspirin; Z79.899 Other long term (current) drug therapy; Z79.891 Long term (current) use of opiate analgesic ==

== ENCOUNTER → 2021-09-19 | Outpatient (REF) | payer MEDICARE ==
[2021-09-19 19:16] LABS: APPEARANCE, URINE HAZY (CLEAR); BACTERIA, URINE AUTO NEGATIVE (NEGATIVE); BILIRUBIN, URINE AUTO NEGATIVE (NEGATIVE); BLOOD, URINE BLOOD NEGATIVE (NEGATIVE); COLOR, URINE YELLOW (YELLOW); GLUCOSE, URINE (UA) AUTO NEGATIVE (NEGATIVE); KETONE, URINE AUTO NEGATIVE (NEGATIVE); LEUKOCYTE ESTERASE, URINE AUTO NEGATIVE (NEGATIVE); NITRITE, URINE AUTO NEGATIVE (NEGATIVE); PROTEIN, URINE AUTO NEGATIVE (NEGATIVE); RBC, URINE AUTO 4 /HPF (0-3); SQUAMOUS EPITHELIAL CELL UR AU 0 /HPF (0-6); UROBILINOGEN, URINE AUTO 0.2 mg/dL (0.0-2.0); WBC, URINE AUTO 0 /HPF (0-3)
== END ==
LOC: M SMT 16:43
PROVIDERS: ATTEND Nurse Practitioner Women's Health
DX: R35.0 Frequency of micturition (principal)

== ENCOUNTER → 2021-09-20 | Outpatient (CLI) | payer MEDICARE | LOC: M PAIN 11:00 | PROVIDERS: ATTEND Anesthesiology | DX: M96.1 Postlaminectomy syndrome, not elsewhere classified (principal); K21.9 Gastro-esophageal reflux disease without esophagitis; F41.9 Anxiety disorder, unspecified; F32.A Depression, unspecified; I25.2 Old myocardial infarction; Z95.5 Presence of coronary angioplasty implant and graft; Z79.82 Long term (current) use of aspirin; Z79.891 Long term (current) use of opiate analgesic; Z79.899 Other long term (current) drug therapy ==

== ENCOUNTER → 2021-10-11 | Outpatient (CLI) | payer MEDICARE | LOC: M LAB 14:45 | PROVIDERS: ATTEND Nurse Practitioner Women's Health | DX: Z12.5 Encounter for screening for malignant neoplasm of prostate (principal) | CPT/HCPCS: 36415; G0103 ==

== ENCOUNTER → 2021-10-18 | Outpatient (REF) | payer MEDICARE ==
[2021-10-18 16:14] LABS: APPEARANCE, URINE MANUAL CLEAR (CLEAR); COLOR, URINE MANUAL YELLOW (YELLOW)
[2021-10-18 16:15] LABS: BILIRUBIN, URINE MANUAL NEGATIVE (NEGATIVE); BLOOD URINE MANUAL POSITIVE (NEGATIVE); GLUCOSE, URINE (UA) MANUAL NEGATIVE (NEGATIVE); KETONE, URINE MANUAL NEGATIVE (NEGATIVE); LEUKOCYTE ESTERASE, URINE MAN NEGATIVE (NEGATIVE); NITRITE, URINE MANUAL NEGATIVE (NEGATIVE); PROTEIN, URINE MANUAL NEGATIVE (NEGATIVE); UROBILINOGEN, URINE MANUAL NORMAL (NORMAL)
[2021-10-18 16:26] LABS: BACTERIA, URINE NONE SEEN; HYALINE CAST, URINE NONE SEEN /lpf (0-1); MUCUS, URINE MOD AMOUNT (NEGATIVE); SQUAMOUS EPITHELIAL CELL URINE NONE SEEN /hpf (SMALL AMT); WBC, URINE NONE SEEN /hpf (0-3)
== END ==
LOC: M SMT 14:52
PROVIDERS: ATTEND Urology
DX: R31.29 Other microscopic hematuria (principal)

== ENCOUNTER → 2021-10-21 | Outpatient (CLI) | payer MEDICARE ==
[2021-10-21 17:17] LABS: BLOOD UREA NITROGEN 10 MG/DL (7-18); CALCIUM LEVEL 8.5 MG/DL (8.8-10.2); CARBON DIOXIDE LEVEL 32 MEQ/L (21-32); CHLORIDE LEVEL 105 MEQ/L (98-107); CREATININE FOR GFR 0.71 MG/DL (0.70-1.30); GLOMERULAR FILTRATION RATE > 60.0 (>49); GLUCOSE, FASTING 91 MG/DL (70-100); POTASSIUM SERUM 4.5 MEQ/L (3.5-5.1); SODIUM LEVEL 139 MEQ/L (136-145)
== END ==
LOC: M LAB 14:38
PROVIDERS: ATTEND Urology
DX: R31.29 Other microscopic hematuria (principal)

== ENCOUNTER → 2021-10-21 | Outpatient (CLI) | payer MEDICARE | LOC: M RAD 14:30 | PROVIDERS: ATTEND Internal Medicine | DX: D38.1 Neoplasm of uncertain behavior of trachea, bronchus and lung (principal) ==

== ENCOUNTER → 2021-10-25 | Outpatient (CLI) | payer MEDICARE ==
[~2021-10-25] MED LIST changes: +ISOVUE-370 76% 100ML VIAL As Ordered ONE
== END ==
LOC: M RAD 17:04
PROVIDERS: ATTEND Urology
DX: R31.29 Other microscopic hematuria (principal); K44.9 Diaphragmatic hernia without obstruction or gangrene; K57.30 Diverticulosis of large intestine without perforation or abscess without bleeding
CPT/HCPCS: 74178; Q9967